=== PATIENT | female | born 1985 | race Caucasian/White ===

== ENCOUNTER 2021-01-29 09:32 | Outpatient (CLI) | payer OTHER ==
--- NOTE | 2021-01-29 11:09 | XRAY Report ---
PROCEDURE: Chest 2 View X-Ray INDICATIONS: COPD, SHORTNESS OF BREATH TECHNIQUE: 2 view(s) of the chest. COMPARISON: None. FINDINGS: Surgical changes and devices: None. Lungs and pleura: There is diffuse interstitial prominence. No focal consolidation. No pleural effus ions or pneumothorax. Mediastinum: Mediastinal contours are normal. Heart size is moderate increased. Bones and chest wall: No suspicious bony abnormalities. Soft tissues appear unremarkable. IMPRESSION: 1. Mild cardiomegaly and diffuse interstitial prominence. Reviewed by: Kanchan Jansen MD on 01/29/2021 11:08 AM [facility] Approved by: Kanchan Jansen MD on 01/29/2021 11:08 AM [facility] Station ID: [id number]
== END 2021-01-29 09:33 | disposition home or self-care (01) ==
LOC: DI.N 09:32
PROVIDERS: ATTEND Physician Assistant
DX: J44.9 Chronic obstructive pulmonary disease, unspecified (principal); R06.02 Shortness of breath; M79.89 Other specified soft tissue disorders; I51.7 Cardiomegaly

== ENCOUNTER 2021-02-06 09:12 | Outpatient (CLI) | payer OTHER | END 2021-02-06 09:13 | disposition home or self-care (01) | LOC: RT 09:12 | PROVIDERS: ATTEND Physician Assistant | DX: J44.9 Chronic obstructive pulmonary disease, unspecified (principal); M79.89 Other specified soft tissue disorders; R06.02 Shortness of breath; Z77.22 Contact with and (suspected) exposure to environmental tobacco smoke (acute) (chronic) | CPT/HCPCS: 94060; 94664; 94727; 94729 ==

== ENCOUNTER 2021-03-24 12:49 | Outpatient (CLI) | payer OTHER ==
[2021-03-24] MEDS ORDERED: IOPAMIDOL-300 100 ML VIAL ONE (13:01)
[2021-03-24] MEDS ORDERED: IOPAMIDOL-300 100 ML VIAL IVP ONE (14:06)
--- NOTE | 2021-03-24 16:31 | CT Report ---
PROCEDURE: CHEST W INDICATIONS: SOB, COPD, ORTHOPNEA CONTRAST: IV CONTRAST: Isovue 300 ml: 100 PO CONTRAST: *NO PO CONTRAST TECHNIQUE: After the administration of intravenous contrast, 5 mm thick sections acquired from the pulmonary api reji to the posterior costophrenic angles. 7 mm thick coronal MIP reformats were acquired. For radia tion dose reduction, the following was used: automated exposure control, adjustment of mA and/or kV according to patient size. COMPARISON: None. FINDINGS: Image quality: Excellent. Lungs and pleura: No acute air space opacities. No pleural effusions or pneumothorax. Central and peripheral airways are patent and normal in caliber. Mediastinum: Heart size is at the upper limits of normal. There is a pericardial effusion suspected at the superior pericardial recess anterior to the ascending aorta. There is evidence of confluent a denopathy involving the mediastinum, seen within the anterior mediastinum, the retrosternal space, th e middle mediastinum, the right paratracheal and pretracheal space, and the subcarinal space. Thorac ic aorta and central pulmonary arteries are normal in size. Esophagus is normal in caliber. No hiat al hernia. Bones and chest wall: No suspicious bony lesions. No vertebral body compression fractures. No axil ruslan or supraclavicular adenopathy by size criteria. Thyroid gland . Appears normal Abdomen: Visualized upper abdominal solid organs appear normal. Upper abdominal bowel loops are nor mal in caliber. IMPRESSION: The heart size is at the upper limits of normal but no pulmonary abnormality is found. Confluent medi astinal adenopathy appears present as discussed above there likely is a pericardial effusion within t he superior pericardial recess anterior to the ascending aorta. Cardiology consultation may be caleb teresa, and the findings of adenopathy noted above raises concern for lymphoma but also potentially sarc oidosis. Reviewed by: Timbo Lopez MD on 03/24/2021 4:30 PM PDT Approved by: Timbo Lopez MD on 03/24/2021 4:30 PM PDT Station ID: [id number]
== END 2021-03-24 12:50 | disposition home or self-care (01) ==
LOC: DI 12:49
PROVIDERS: ATTEND Physician Assistant
DX: J44.9 Chronic obstructive pulmonary disease, unspecified (principal); R06.02 Shortness of breath; R06.01 Orthopnea; R59.0 Localized enlarged lymph nodes; R00.0 Tachycardia, unspecified; I08.1 Rheumatic disorders of both mitral and tricuspid valves; R06.09 Other forms of dyspnea
CPT/HCPCS: 71260; 93306; Q9967

== ENCOUNTER 2021-03-24 12:51 | Outpatient (CLI) | payer OTHER | END 2021-03-24 12:52 | disposition home or self-care (01) | LOC: DI 12:51 | PROVIDERS: ATTEND Physician Assistant | DX: R06.01 Orthopnea (principal); R06.09 Other forms of dyspnea; R00.0 Tachycardia, unspecified; J44.9 Chronic obstructive pulmonary disease, unspecified; I08.1 Rheumatic disorders of both mitral and tricuspid valves | CPT/HCPCS: 93306 ==

== ENCOUNTER 2023-02-11 11:56 | Outpatient (CLI) | payer OTHER ==
--- NOTE | 2023-02-11 18:31 | XRAY Report ---
PROCEDURE: Lumbar Spine 2 View: PARESTHESIA,LEG TECHNIQUE: 2 views of the lumbar spine were acquired. COMPARISON: None. FINDINGS: Bones: 5 meg-[id number]-[id number] vertebrae are present. Trace levoconvex curvature. No vertebral body compr ession fractures. No suspicious bony lesions. Mild degenerative endplate changes. Mild multilevel f acet hypertrophy. Soft tissues: Overlying bowel gas pattern is normal. No suspicious soft tissue calcifications. IMPRESSION: Mild spondylosis. MRI of the lumbar spine could be performed for further evaluation if i ndicated clinically. Reviewed by: Navi Munguia MD on 02/11/2023 6:29 PM PDT Approved by: Navi Munguia MD on 02/11/2023 6:29 PM PDT Station ID: [id number]
== END 2023-02-11 11:57 | disposition home or self-care (01) ==
LOC: DI 11:56
PROVIDERS: ATTEND Registered Nurse
DX: R20.2 Paresthesia of skin (principal); G57.02 Lesion of sciatic nerve, left lower limb; M47.816 Spondylosis without myelopathy or radiculopathy, lumbar region

== ENCOUNTER 2023-02-18 07:13 | Outpatient (CLI) | payer OTHER ==
--- NOTE | 2023-02-20 09:03 | MRI Report ---
PROCEDURE: LUMBAR SPINE WO INDICATIONS: PARESTHESIA TECHNIQUE: Noncontrast sagittal T1 spin echo and T2 fast echo, sagittal STIR, axial T1 and T2 fast spin echo thr ough the lumbar spine. In cases with scoliosis, additional coronal T2 fast spin echo may be performe d. COMPARISON: Lumbar spine plain films dated 02/11/2023. FINDINGS: Image quality: Excellent. Alignment and Curvature: There is normal bony alignment. Bone Marrow: Marrow is of normal overall signal. No acute vertebral body compression fractures. Spinal Cord: Conus medullaris terminates at the T12-L1 level. Visualized cord demonstrates normal s ignal and size. Paraspinous Soft Tissues: No paravertebral masses. T12-L1: Normal in appearance. L1-L2: Normal in appearance. L2-L3: Normal in appearance. L3-L4: Mild disc bulge. Mild facet hypertrophy. No central canal stenosis. Mild right foraminal jannette rowing. Right lateral disc bulge abutting the right L3 nerve root far laterally. L4-L5: Moderate diffuse disc bulge. Mild facet hypertrophy. Mild canal stenosis. Mild bilateral for aminal narrowing. L5-S1: Mild central posterior disc protrusion. No canal stenosis. Mild facet hypertrophy. No signif icant foraminal stenosis. IMPRESSION: 1. Mild multilevel facet arthropathy. 2. Mild canal stenosis at L4-L5. 3. At L3-L4, there is a right lateral disc bulge abutting the right L3 nerve root far laterally. Ques tion: Does this patient have any right L3 radicular symptoms? Reviewed by: Sage Lnusford MD on 02/20/2023 9:02 AM PDT Approved by: Sage Lunsford MD on 02/20/2023 9:02 AM PDT Station ID: [id number]
== END 2023-02-18 07:14 | disposition home or self-care (01) ==
LOC: DI 07:13
PROVIDERS: ATTEND Registered Nurse
DX: M47.816 Spondylosis without myelopathy or radiculopathy, lumbar region (principal); M51.27 Other intervertebral disc displacement, lumbosacral region; M51.36 Other intervertebral disc degeneration, lumbar region; M48.061 Spinal stenosis, lumbar region without neurogenic claudication; M47.817 Spondylosis without myelopathy or radiculopathy, lumbosacral region

== ENCOUNTER 2024-07-03 13:00 | Outpatient (CLI) | payer OTHER ==
[2024-07-03 17:49] LABS: BASOPHILS % (AUTO) 0.7 %; EOSINOPHILS # (AUTO) 0.2 10^3/uL (0.0-0.7); EOSINOPHILS % (AUTO) 4.3 %; HCT - HEMATOCRIT 38.9 % (37.0-47.0); HGB - HEMOGLOBIN 12.6 g/dL (12.0-16.0); LYMPHOCYTES # (AUTO) 2.2 10^3/uL (1.5-3.5); LYMPHOCYTES % (AUTO) 39.9 %; MEAN CORPUSCULAR HEMOGLOBIN 27.3 pg (27.0-31.0); MEAN CORPUSCULAR HGB CONC 32.4 g/dL (32.0-36.0); MEAN CORPUSCULAR VOLUME 84.4 fL (81.0-99.0); MEAN PLATELET VOLUME 11.1 fL (7.9-10.8); MONOCYTES # (AUTO) 0.5 10^3/uL (0.0-1.0); MONOCYTES % (AUTO) 9.3 %; NEUTROPHILS # (AUTO) 2.6 10^3/uL (1.5-6.6); NEUTROPHILS % (AUTO) 45.6 %; PLT - PLATELET COUNT 293 10^3/uL (130-450); RED BLOOD COUNT 4.61 10^6/uL (4.20-5.40); RED CELL DISTRIBUTION WIDTH 12.4 % (12.0-15.0); WHITE BLOOD COUNT 5.6 x10^3/uL (4.8-10.8)
[2024-07-03 18:45] LABS: CALCIUM 9.4 mg/dL (8.5-10.3); CREATININE 0.9 mg/dL (0.6-1.3); POTASSIUM 3.3 mmol/L (3.5-4.5)
== END 2024-07-03 13:01 | disposition home or self-care (01) ==
LOC: LAB.N 13:00
PROVIDERS: ATTEND Physician Assistant Medical
DX: R42 Dizziness and giddiness (principal)
CPT/HCPCS: 36415; 80048; 82607; 85025